=== PATIENT | female | born 1955 | race Two or more races ===

== ENCOUNTER 2022-12-01 10:56 | Outpatient (CLI) | payer MEDICARE, OTHER ==
[2022-12-01 12:13] LABS: BASOPHILS % (AUTO) 0.2 % (0.0-2.0); EOSINOPHILS # (AUTO) 0.1 K/uL (0.0-0.7); EOSINOPHILS % (AUTO) 1.9 % (0.0-6.0); HEMATOCRIT 39 % (33-45); HEMOGLOBIN 12.9 g/dL (11.5-14.8); LYMPHOCYTES # (AUTO) 2.5 K/uL (0.8-4.8); LYMPHOCYTES % (AUTO) 33.5 % (20.0-44.0); MEAN CORPUSCULAR HEMOGLOBIN 29 PG (26.0-33.0); MEAN CORPUSCULAR HGB CONC 33 g/dl (31.0-36.0); MEAN CORPUSCULAR VOLUME 89 fL (82-100); MONOCYTES # (AUTO) 0.4 K/uL (0.1-1.30); MONOCYTES % (AUTO) 5.5 % (2.0-12.0); NEUTROPHILS # (AUTO) 4.4 K/uL (1.8-8.9); NEUTROPHILS % (AUTO) 58.9 % (43.0-81.0); PLATELET COUNT (AUTO) 256 K/uL (150-450); RED BLOOD CELL COUNT(AUTO) 4.46 MIL/uL (4.0-5.2); RED CELL DISTRIBUTION WIDTH 14.1 % (11.5-15.0); WHITE BLOOD COUNT (AUTO) 7.5 K/uL (4.3-11.0)
[2022-12-01 12:25] LABS: APPEARANCE,URINE CLEAR (CLEAR); BILIRUBIN,URINE NEGATIVE (NEGATIVE); BLOOD, URINE NEGATIVE Ery/uL (NEGATIVE); COLOR,URINE YELLOW (YELLOW); KETONES,URINE TRACE mg/dL (NEGATIVE); LEUKOCYTE ESTERASE ,URINE NEGATIVE (NEGATIVE); NITRITE, URINE NEGATIVE (NEGATIVE); PH,URINE 5.5 (5.0-8.0); PROTEIN,URINE NEGATIVE (NEGATIVE); UGLUCOSE 3+ mg/dL (NEGATIVE); UROBILINOGEN,URINE 0.2 EU/dL (0.2)
[2022-12-01 12:31] LABS: CALCIUM, SERUM 9.3 mg/dL (8.5-10.1); CREATININE 0.5 mg/dL (0.6-1.3); POTASSIUM 3.6 mmol/L (3.5-5.1)
[2022-12-01 12:33] LABS: INR 1.04 (0.91-1.10); PARTIAL THROMBOPLASTIN TIME 25.1 SEC (24.3-34.3); PROTHROMBIN TIME 10.9 SECS (9.2-11.1)
[2022-12-01 12:50] LABS: ADD URINE CULTURE NO; BACTERIA,URINE None seen /HPF (None Seen); RBC,URINE NONE SEEN /HPF (0-2); SQUAMOUS EPITHELIAL CELL,UR None Seen /HPF (None Seen); WBC,URINE NONE SEEN /HPF (0-3)
== END 2022-12-01 23:59 | disposition home or self-care (01) ==
LOC: RT 10:56
PROVIDERS: ATTEND Internal Medicine Pulmonary Disease
DX: Z01.818 Encounter for other preprocedural examination (principal)
CPT/HCPCS: 36415; 80048-TC; 81001; 85025-TC; 85610-TC; 85730-TC

== ENCOUNTER 2022-12-04 08:38 | Inpatient (IN) | payer MEDICARE, OTHER ==
[~2022-12-04] VITALS: Ht 165.1 cm; Wt 68.0 kg
[2022-12-04] MEDS ORDERED: dexaMETHasone SOD PHOSPHATE 10 MG/ML VIAL ONE (10:16)
[2022-12-04] MEDS ORDERED: LIDOCAINE 2%-EPI 1:100,000 30 ML VIAL ONE (10:16)
[2022-12-04] MEDS ORDERED: VANCOMYCIN 1 GM VIAL ONE (10:17)
[2022-12-04] MEDS ORDERED: FAMOTIDINE/PF INJ 20 MG/2 ML VIAL IV ONE (10:18)
[2022-12-04] MEDS ORDERED: OXYMETAZOLINE HCL NASAL SPRAY 30 ML BOTTLE NS ONE (10:18)
[2022-12-04] MEDS ORDERED: FENTANYL PF 100MCG/2ML AMPUL ONE (10:18)
[2022-12-04] MEDS ORDERED: Magnesium 1 GM/2 ML VIAL ONE (10:18)
[2022-12-04] MEDS ORDERED: INSULIN REGULAR, HUMAN 100 UNIT/ML 10 ML VIAL ONE (12:53)
[2022-12-04 13:35] VITALS: BP 137/77; TEMP 98.5; O2SAT 96
[2022-12-04 13:50] VITALS: BP 145/77; TEMP 98.6; O2SAT 95
[2022-12-04] MEDS ORDERED: METO25TA4 PO (14:02)
[2022-12-04] MEDS ORDERED: METF-442 PO (14:02)
[2022-12-04] MEDS ORDERED: DULA0.75 SQ (14:02)
[2022-12-04] MEDS ORDERED: INSU100V7 SQ (14:02)
[2022-12-04] MEDS ORDERED: VALS40TA12 PO (14:02)
[2022-12-04] MEDS ORDERED: CETI-108 PO (14:02)
[2022-12-04] MEDS ORDERED: MIRT45TA83 PO (14:02)
[2022-12-04] MEDS ORDERED: ASPI-1420 PO (14:03)
[2022-12-04] MEDS ORDERED: GABA300C PO (14:03)
[2022-12-04 14:05] VITALS: BP 150/81; TEMP 98.5; O2SAT 97
[2022-12-04 14:20] VITALS: BP 147/76; TEMP 98.7; O2SAT 97
[2022-12-04] MEDS ORDERED: IV NS 0.9% 1,000 ML IV PRN (14:30)
[2022-12-04] MEDS ORDERED: ACETAMINOPHEN 325 MG TABLET PO PRN ×2 (14:30→16:00)
[2022-12-04] MEDS ORDERED: ONDANSETRON HCL/PF 4 MG/2 ML VIAL IVP PRN ×2 (14:30→16:00)
[2022-12-04] MEDS ORDERED: HYDROMORPHONE 1 MG/1 ML DISP.SYRIN IV PRN (14:30)
[2022-12-04] MEDS ORDERED: MAGNESIUM HYDROXIDE 30 ML UDC PO PRN (16:00)
[2022-12-04] MEDS ORDERED: MAG HYDROX/AL HYDROX/SIMETH 30 ML UDC PO PRN (16:00)
[2022-12-04] MEDS ORDERED: DEXTROSE 50%-WATER 50 ML DISP.SYRIN IV PRN (16:00)
[2022-12-04] MEDS ORDERED: cetrizine 10 MG TABLET PO PRN (16:00)
[2022-12-04] MEDS ORDERED: TEMAZEPAM 15 MG CAPSULE PO PRN (16:00)
[2022-12-04] MEDS ORDERED: Z GUARD REMEDY 4 OZ OINT TP PRN (16:00)
[2022-12-04] MEDS ORDERED: MORPHINE SULFATE INJ 4 MG/ML DISP.SYRIN IV PRN (16:30)
[2022-12-04] MEDS: BLOOD SUGAR DIAGNOSTIC 1 EACH STRIP IN SCH ×2 (16:42→21:44)
[2022-12-04] MEDS: HYDROCODONE/APAP 5/325MG TABLET PO PRN ×2 (16:55→21:41)
[2022-12-04] MEDS: INSULIN REGULAR, HUMAN 100 UNIT/ML 3 ML VIAL SQ PRN ×2 (17:03→21:44)
[2022-12-04] MEDS ORDERED: MIRTAZAPINE 45 MG TABLET PO SCH (18:00)
[2022-12-04 20:30] VITALS: BP 136/67; TEMP 99; O2SAT 96
[2022-12-04] MEDS ORDERED: VANCOMYCIN 1 GM /D5W 250 ML PB IV ONE (21:56)
[2022-12-04] MEDS: VANCOMYCIN 1 GM in IV D5W 250ml IV SCH (22:10)
[2022-12-05 05:47] LABS: BASOPHILS % (AUTO) 0.1 % (0.0-2.0); EOSINOPHILS % (AUTO) 0.2 % (0.0-6.0); HEMATOCRIT 35 % (33-45); HEMOGLOBIN 11.5 g/dL (11.5-14.8); LYMPHOCYTES % (AUTO) 21.2 % (20.0-44.0); MEAN CORPUSCULAR HEMOGLOBIN 30 PG (26.0-33.0); MEAN CORPUSCULAR HGB CONC 33 g/dl (31.0-36.0); MEAN CORPUSCULAR VOLUME 88 fL (82-100); MONOCYTES # (AUTO) 0.7 K/uL (0.1-1.30); MONOCYTES % (AUTO) 7.2 % (2.0-12.0); NEUTROPHILS # (AUTO) 6.7 K/uL (1.8-8.9); NEUTROPHILS % (AUTO) 71.3 % (43.0-81.0); PLATELET COUNT (AUTO) 250 K/uL (150-450); RED CELL DISTRIBUTION WIDTH 13.9 % (11.5-15.0); WHITE BLOOD COUNT (AUTO) 9.4 K/uL (4.3-11.0)
[2022-12-05 05:57] LABS: CALCIUM, SERUM 8.7 mg/dL (8.5-10.1); CREATININE 0.7 mg/dL (0.6-1.3); MAGNESIUM 2.1 mg/dL (1.8-2.4); PHOSPHORUS 3.3 mg/dL (2.5-4.9); POTASSIUM 4.1 mmol/L (3.5-5.1)
[2022-12-05] MEDS: INSULIN REGULAR, HUMAN 100 UNIT/ML 3 ML VIAL SQ PRN ×2 (06:33→12:11)
[2022-12-05] MEDS: BLOOD SUGAR DIAGNOSTIC 1 EACH STRIP IN SCH ×2 (07:09→12:02)
[2022-12-05] MEDS ORDERED: PANTOPRAZOLE 40 MG TABLET.DR PO SCH (07:30)
[2022-12-05 08:00] VITALS: BP 133/69; TEMP 99.1; O2SAT 97
[2022-12-05 08:58] VITALS: BP 138/69
[2022-12-05] MEDS ORDERED: VALSARTAN 80 MG TABLET PO SCH (09:00)
[2022-12-05] MEDS ORDERED: METOPROLOL SUCCINATE 25 MG TAB.SR.24H PO SCH (09:00)
[2022-12-05] MEDS: VANCOMYCIN 1 GM in IV D5W 250ml IV SCH (11:51)
== END 2022-12-05 13:10 | disposition home or self-care (01) | DRG 516 ==
LOC: DS 08:38 → MED 08:39
PROVIDERS: ADMIT Dentist Oral and Maxillofacial Surgery; ATTEND Dentist Oral and Maxillofacial Surgery
PROC: 0NBR0ZZ Excision of Maxilla, Open Approach (ICD-10-PCS; principal; 2022-12-05)
PROC: 0NSR04Z Reposition Maxilla with Internal Fixation Device, Open Approach (ICD-10-PCS; 2022-12-05)
PROC: 0NSV04Z Reposition Left Mandible with Internal Fixation Device, Open Approach (ICD-10-PCS; 2022-12-05)
PROC: 0NST04Z Reposition Right Mandible with Internal Fixation Device, Open Approach (ICD-10-PCS; 2022-12-05)
PROC: 0NBV0ZX Excision of Left Mandible, Open Approach, Diagnostic (ICD-10-PCS; 2022-12-05)
PROC: 0NBT0ZX Excision of Right Mandible, Open Approach, Diagnostic (ICD-10-PCS; 2022-12-05)
DX: S02.609K Fracture of mandible, unspecified, subsequent encounter for fracture with nonunion (principal); M87.88 Other osteonecrosis, other site; E11.9 Type 2 diabetes mellitus without complications; F32.A Depression, unspecified; I10 Essential (primary) hypertension; Z79.82 Long term (current) use of aspirin; Z79.4 Long term (current) use of insulin; Z79.899 Other long term (current) drug therapy; Z79.84 Long term (current) use of oral hypoglycemic drugs; Z79.85 Long-term (current) use of injectable non-insulin antidiabetic drugs; M27.2 Inflammatory conditions of jaws
CPT/HCPCS: 36415; 80048-TC; 80061-TC; 81001; 82962-TC; 83735-TC; 84100-TC; 85025-TC; 85610-TC; 85730-TC; 87081-TC; A4223; C1713; G0378; J1100; J1815; J2405; J2704; J2765; J3010; J3370; J3475; J3490; J7030; J7060

== ENCOUNTER 2023-06-11 09:40 | Inpatient (IN) | payer MEDICARE, OTHER ==
[~2023-06-11] VITALS: Ht 160 cm; Wt 63.5 kg
[2023-06-11] VITALS (7 sets, daily range): BP systolic 105–138; BP diastolic 55–73; TEMP 97.5–99; O2SAT 94–98
[~2023-06-11 09:40] MED LIST: ASPI-1420 PO; CETI-108 PO; DULA0.75 SQ; GABA300C PO; INSU100V7 SQ; METF-442 PO; METO25TA4 PO; MIRT45TA83 PO; VALS40TA12 PO
[2023-06-11] MEDS ORDERED: LIDOCAINE 2%-EPI 1:100,000 30 ML VIAL ONE (12:04)
[2023-06-11] MEDS ORDERED: VANCOMYCIN 1 GM VIAL ONE (12:04)
[2023-06-11] MEDS ORDERED: dexaMETHasone SOD PHOSPHATE 2 ML ONE (12:04)
[2023-06-11] MEDS ORDERED: MAG HYDROX/AL HYDROX/SIMETH 30 ML UDC PO PRN (13:30)
[2023-06-11] MEDS ORDERED: MAGNESIUM HYDROXIDE 30 ML UDC PO PRN (13:30)
[2023-06-11] MEDS ORDERED: ZOLPIDEM TARTRATE 5 MG TABLET PO PRN (13:30)
[2023-06-11] MEDS ORDERED: Z GUARD REMEDY 4 OZ OINT TP PRN (13:30)
[2023-06-11] MEDS ORDERED: ONDANSETRON HCL/PF 4 MG/2 ML VIAL IVP PRN (13:30)
[2023-06-11] MEDS ORDERED: cetrizine 10 MG TABLET PO PRN (13:30)
[2023-06-11] MEDS ORDERED: METOCLOPRAMIDE HCL 10 MG/2 ML VIAL ONE (13:48)
[2023-06-11] MEDS ORDERED: IV NS 0.9% 100 ML IV ONE (14:30)
[2023-06-11] MEDS: IV NS 0.9% 1,000 ML IV SCH (15:05)
[2023-06-11] MEDS: HYDROCODONE/APAP 5/325MG TABLET PO PRN (15:16)
[2023-06-11] MEDS ORDERED: HYDROMORPHONE 1 MG/1 ML DISP.SYRIN IV PRN (15:30)
[2023-06-11] MEDS: BLOOD SUGAR DIAGNOSTIC 1 EACH STRIP IN SCH (17:14)
[2023-06-11] MEDS: ACETAMINOPHEN 325 MG TABLET PO PRN (17:14)
[2023-06-11] MEDS: GABAPENTIN 300 MG CAPSULE PO SCH (17:14)
[2023-06-11] MEDS: MIRTAZAPINE 45 MG TABLET PO SCH (17:15)
[2023-06-11] MEDS ORDERED: DEXTROSE 50%-WATER 50 ML DISP.SYRIN IV PRN (17:30)
[2023-06-11] MEDS: INSULIN REGULAR, HUMAN 100 UNIT/ML 3 ML VIAL SQ PRN (17:40)
[2023-06-11] MEDS: Medication Not On Formulary EA (Dulaglutide (Trulicity) 0.75 MG) SQ SCH (18:05)
[2023-06-11] MEDS: INSULIN GLARGINE, 100 UNIT/ML CARTRIDGE SQ SCH (22:50)
[2023-06-11] MEDS: VANCOMYCIN 1 GM in IV D5W 250ml IV SCH (22:52)
[2023-06-12 06:25] LABS: BASOPHILS % (AUTO) 0.1 % (0.0-2.0); HEMATOCRIT 36 % (33-45); HEMOGLOBIN 12.1 g/dL (11.5-14.8); LYMPHOCYTES # (AUTO) 1.1 K/uL (0.8-4.8); LYMPHOCYTES % (AUTO) 13.7 % (20.0-44.0); MEAN CORPUSCULAR HEMOGLOBIN 29 PG (26.0-33.0); MEAN CORPUSCULAR HGB CONC 34 g/dl (31.0-36.0); MEAN CORPUSCULAR VOLUME 87 fL (82-100); MONOCYTES # (AUTO) 0.5 K/uL (0.1-1.30); MONOCYTES % (AUTO) 6.7 % (2.0-12.0); NEUTROPHILS # (AUTO) 6.4 K/uL (1.8-8.9); NEUTROPHILS % (AUTO) 79.5 % (43.0-81.0); PLATELET COUNT (AUTO) 253 K/uL (150-450); RED BLOOD CELL COUNT(AUTO) 4.11 MIL/uL (4.0-5.2); RED CELL DISTRIBUTION WIDTH 14.7 % (11.5-15.0)
[2023-06-12 06:48] LABS: CALCIUM, SERUM 8.8 mg/dL (8.5-10.1); CREATININE 0.6 mg/dL (0.6-1.3); POTASSIUM 3.9 mmol/L (3.5-5.1)
[2023-06-12 08:00] VITALS: BP 113/60; TEMP 98.4; O2SAT 97
[2023-06-12] MEDS: ASPIRIN EC 81 MG TABLET.DR PO SCH (08:11)
[2023-06-12] MEDS: PANTOPRAZOLE 40 MG TABLET.DR PO SCH (08:11)
[2023-06-12] MEDS: VALSARTAN 40 MG TABLET PO SCH (08:12)
[2023-06-12 08:13] VITALS: BP 115/75
[2023-06-12] MEDS: METOPROLOL SUCCINATE 25 MG TAB.SR.24H PO SCH (08:13)
== END 2023-06-12 10:00 | disposition home or self-care (01) | DRG 497 ==
LOC: DS 09:40 → MED 10:08
PROVIDERS: ADMIT Student in an Organized Health Care Education/Training Program; ATTEND Nurse Practitioner Acute Care
PROC: 0NPW04Z Removal of Internal Fixation Device from Facial Bone, Open Approach (ICD-10-PCS; principal; 2023-06-11)
PROC: 0NBV0ZX Excision of Left Mandible, Open Approach, Diagnostic (ICD-10-PCS; 2023-06-11)
PROC: 0NBR0ZX Excision of Maxilla, Open Approach, Diagnostic (ICD-10-PCS; 2023-06-11)
PROC: 0NBT0ZX Excision of Right Mandible, Open Approach, Diagnostic (ICD-10-PCS; 2023-06-11)
PROC: 0NUV0JZ Supplement Left Mandible with Synthetic Substitute, Open Approach (ICD-10-PCS; 2023-06-11)
PROC: 0NUT0JZ Supplement Right Mandible with Synthetic Substitute, Open Approach (ICD-10-PCS; 2023-06-11)
DX: T84.69XA Infection and inflammatory reaction due to internal fixation device of other site, initial encounter (principal); M27.2 Inflammatory conditions of jaws; K13.79 Other lesions of oral mucosa; I10 Essential (primary) hypertension; E11.9 Type 2 diabetes mellitus without complications; F32.A Depression, unspecified; Z79.82 Long term (current) use of aspirin; Z79.4 Long term (current) use of insulin; D16.4 Benign neoplasm of bones of skull and face; M89.38 Hypertrophy of bone, other site; K12.30 Oral mucositis (ulcerative), unspecified; Y83.8 Other surgical procedures as the cause of abnormal reaction of the patient, or of later complication, without mention of misadventure at the time of the procedure; Y92.009 Unspecified place in unspecified non-institutional (private) residence as the place of occurrence of the external cause
CPT/HCPCS: 36415; 80048-TC; 82962-TC; 83735-TC; 84100-TC; 85025-TC; A4223; G0378; J0461; J0690; J1100; J1815; J2704; J2765; J3370; J3490; J7030; J7060